=== PATIENT | male | born 1930 | race Caucasian/White ===

== ENCOUNTER 2017-04-02 18:56 | Emergency (ER) | payer MEDICARE ==
[~2017-04-02] VITALS: Ht 180.3 cm; Wt 81.6 kg
[~2017-04-02 18:56] MED LIST: CEPH500C PO; TOE FUNGUS MED; [UNRECOGNIZED DRUG - REMARK]
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
--- NOTE | 2017-04-02 19:16 | ED Cough/URI ---
General Stated Complaint: FLU SYMPTOMS Source: patient Exam Limitations: no limitations History of Present Illness Date Seen by Provider: Apr 02, 2017 Time Seen by Provider: 19:08 Initial Comments Patient presents ER by private conveyance with his neighbor with a chief complaint that for 3 days now is a progressively worsening body aches, productive yellow cough, no shortness of breath, chest pain, wheezing. He does not smoke he has no history of lung disease or heart disease. He has been using TheraFlu 3-4 times a day. He's had some chills as well as malaise and body aches. Allergies and Home Medications Allergies Coded Allergies: clindamycin (Unverified Allergy, Intermediate, DIARRHEA, 03/20/10) Home Medications No Active Prescriptions or Reported Meds Constitutional: chills, No diaphoresis, fever, malaise EENTM: No hearing loss, No ear pain Respiratory: cough, phlegm, No short of breath, wheezing Cardiovascular: No chest pain, No palpitations, No vascular heart diseas Gastrointestinal: No constipation, No diarrhea, No nausea, No vomiting Genitourinary: No discharge, No dysuria Musculoskeletal: No back pain, No joint pain Skin: No pruritus, No rash Past Tmoiyde-Ltgxco-Yegbkc Hx Patient Social History Alcohol Use: Denies Use Recreational Drug Use: No Smoking Status: Former Smoker (quit age 28) Recent Foreign Travel: No Contact w/Someone Who Travel: No Immunizations Up To Date Tetanus Booster (TDap): Unknown PED Vaccines UTD: Yes Date of Pneumonia Vaccine: May 15, 2009 Date of Influenza Vaccine: Dec 15, 2012 Reproductive System Hx Reproductive Disorders: No Sexually Transmitted Disease: No HIV/AIDS: No Gastrointestinal Gastrointestinal Disorders: Gall Bladder Disease HEENT HEENT Disorders: Cataract Loss of Vision: Denies Hearing Impairment: Hard of Hearing Blood Transfusions Adverse Reaction to a Blood Tr: No Family Medical History Family Medial History: Dementia 03 MOTHER Family history: Diabetes mellitus 03 MOTHER MATERNAL GRANDMOTHER Stroke 03 MOTHER Physical Exam Vital Signs Vital Sign - Last 12Hours 04/02/17 19:14 Temp 100.4 Pulse 98 Resp 20 B/P (MAP) 140/77 (98) Pulse Ox 92 O2 Delivery Room Air Capillary Refill : General Appearance: WD/WN, no apparent distress Eyes: Bilateral Eye Normal Inspection, Bilateral Eye PERRL, Bilateral Eye EOMI HEENT: PERRL/EOMI, normal ENT inspection, TMs normal, pharynx normal (oral mucosa is moist) Neck: non-tender, full range of motion, supple, normal inspection Respiratory: chest non-tender, lungs clear, normal breath sounds, no respiratory distress, no accessory muscle use Cardiovascular: normal peripheral pulses, regular rate, rhythm, no edema Gastrointestinal: normal bowel sounds, non tender, soft Extremities: normal inspection, normal capillary refill Neurologic/Psychiatric: alert, oriented x 3 Skin: normal color, warm/dry Progress/Results/Core Measures Suspected Sepsis SIRS Temperature: Pulse: Respiratory Rate: Blood Pressure / Mean: Results/Orders My Orders Orders - CLARKE COONEY Influenza A And B Antigens (04/02/17 19:08) Chest Pa/Lat (2 View) (04/02/17 19:08) Vital Signs/I&O Vital Sign - Last 12Hours 04/02/17 19:14 Temp 100.4 Pulse 98 Resp 20 B/P (MAP) 140/77 (98) Pulse Ox 92 O2 Delivery Room Air Capillary Refill : Progress Note : Time: 19:15 Progress Note Vital signs were a septic soldiers get a flu swab is most likely viral in origin based on history and clinical exam. Becausehe is 86 it's probably not a bad idea to get a chest x-ray thinking about other potential diagnoses that might accompany a bronchiolitis/bronchitis/pneumonia picture. Diagnostic Imaging Diagonstic Imaging: Xray Plain Films/CT/US/NM/MRI: chest (2v) Comments No acute cardiopulmonary processes noted. NAME: LUIS DANIEL [facility] REC#: [id number] PT STATUS: REG ER : 1930 PHYSICIAN: CLARKE COONEY MD ADMIT DATE: 04/02/17/ER Draft Date of Exam:04/02/17 CHEST PA/LAT (2 VIEW) INDICATION: Cough and fever PA and lateral chest There is a dual-chamber pacemaker. Heart size and pulmonary vascularity are normal. Lungs are clear. There are no effusions or pneumothoraces. IMPRESSION: No acute abnormalities in the chest Dictated on workstation # [id number] Dict: 04/02/171921 Trans: 04/02/17 [facility] REBEKAH [id number] Interpreted by: LISA ANDERSON MD Electronically signed by: Reviewed: Reviewed by Me Departure Impression Impression: Primary Impression: Influenza Disposition: 01 HOME, SELF-CARE Condition: Stable Departure-Patient Inst. Decision time for Depature: 19:37 Referrals: JIMMY HAYNES DO (PCP/Family) Primary Care Physician Patient Instructions: Flu, Adult (DC) Add. Discharge Instructions: Take the Tamiflu twice a day for 5 days. Fluids use a humidifier and vapor rubs such as Vicks or Mentholatum. Use Tylenol 1000 g every 8 hours and/or ibuprofen 800 mg every 8 hours for body aches or fever. Expect to be sick for about 2-3 weeks. If you're getting worse over the next week or 2 or if your symptoms are not improved by week 2 or 3 follow-up with your primary care physician. Stay home and wear a mask to give to go out in public for the first 5-6 days. Scripts Oseltamivir Phosphate (Oseltamivir Phosphate) 75 Mg Capsule 75 MG PO BID for 5 Days, #9 CAP 0 Refills Prov: CLARKE COONEY 04/02/17 Copy Copies To 1: JIMMY HAYNES TITUS J Apr 02, 2017 19:16
--- NOTE | 2017-04-02 19:25 | Diagnostic Imaging Report ---
INDICATION: Cough and fever PA and lateral chest There is a dual-chamber pacemaker. Heart size and pulmonary vascularity are normal. Lungs are clear. There are no effusions or pneumothoraces. IMPRESSION: No acute abnormalities in the chest Dictated by: Dictated on workstation # [id number]
[2017-04-02] MEDS ORDERED: OSEL75CA15 PO (19:41)
[2017-04-02] MEDS ORDERED: RX-OSELTAMIVIR 75 MG (TAMIFLU) BOX OF 10 PO STA (19:45)
[2017-04-02 19:50] VITALS: BP 140/77
[2017-04-02] MEDS ORDERED: OSELTAMIVIR 75 MG (TAMIFLU) BOX OF 10 PO SCH (21:00)
== END 2017-04-02 19:48 | disposition home or self-care (01) ==
LOC: EDUNIT# 18:56 → ER 18:57
DX: J11.1 Influenza due to unidentified influenza virus with other respiratory manifestations (principal); Z87.891 Personal history of nicotine dependence; Z87.19 Personal history of other diseases of the digestive system
CPT/HCPCS: 71046; 87804; 99283